=== PATIENT | female | born 1955 | race Caucasian/White ===

== ENCOUNTER → 2017-05-15 10:44 | Outpatient (CLI) | payer MEDICAID ==
--- NOTE | ~2017-05-15 | ST ---
PATIENT:SANDRA LICONA MEDICAL RECORD: [id number] SEX: F LOCATION:[facility] ORDER #: ADMISSION DATE: 05/15/17 AGE OF PATIENT: 62 REFERRING PHYSICIAN: INTERPRETING PHYSICIAN: EARLE CRUMP MD DATE OF SERVICE: 05/15/2017 PROCEDURE: Nuclear stress test. INDICATION: Chest pain of unknown etiology. She was exercised on standard Lexiscan protocol with 32.5 mCi of sestamibi injected at peak stress. Rest images were done previously with 12.7 mCi of sestamibi. FINDINGS: Gated SPECT reveals a preserved ejection fraction greater than 80% with good wall motioning, thickening, and brightening throughout all segments. SPECT imaging; sestamibi is used as myocardial perfusion agent. There is homogeneous uptake throughout all segments at rest and stress with no evidence of inducible ischemia or previous infarction. OVERALL IMPRESSION: 1. This is a normal nuclear stress test with no evidence of inducible ischemia or previous infarction. 2. Gated SPECT reveals preserved ejection fraction greater than 70% in this patient with ongoing symptomatology, the current scan does not suggest the presence of hemodynamically significant coronary artery disease. We would proceed with noncardiac chest pain etiology workup. TRANSINT:[id number] Voice Confirmation ID: [id number] DOCUMENT ID: [id number] EARLE CRUMP MD at 1323 CC: [id number] DICTATION DATE: 05/20/17 0938 MICROCOMPUTER TECHNICIAN: 05/20/17 1304 DEP CLI 05/15/[address] [address]
== END | disposition home or self-care (01) ==
LOC: D.NM 10:44
DX: I20.9 Angina pectoris, unspecified (principal); R06.00 Dyspnea, unspecified

== ENCOUNTER → 2018-03-10 18:22 | Outpatient (CLI) | payer MEDICAID | END | disposition home or self-care (01) | LOC: D.MAMMO 13:30 | DX: Z12.31 Encounter for screening mammogram for malignant neoplasm of breast (principal) ==

== ENCOUNTER 2018-12-23 06:25 | Day surgery (SDC) | payer MEDICAID ==
[2018-12-22 14:27] LABS: BASOPHILS 0 % (0-2); EOSINOPHILS 0.3 % (0-7); HEMATOCRIT 37.2 % (36.0-48.0); HEMOGLOBIN 13.3 g/dL (12-16); LYMPHOCYTES 25.9 % (15-50); MCHC 35.8 g/dL (31.0-37.0); MCV 89.4 fL (80.0-100.0); MEAN PLATELET VOLUME 9.2 fL (7.4-10.4); MONOCYTES 14.1 % (2-11); NEUTROPHILS 59.7 % (40-80); PLATELET COUNT 186 10x3/uL (130-400); RBC 4.16 10x6/uL (4.00-5.40); RDW 12.4 % (11.5-14.5); WBC 3.4 10x3/uL (4.8-10.8)
[2018-12-22 15:50] LABS: INR 1.08 (0.85-1.17); PROTIME 13.5 SECONDS (11.6-15.0)
[2018-12-22 15:51] LABS: APTT 25.7 SECONDS (22.8-39.4)
[~2018-12-23] VITALS: Ht 160 cm; Wt 87.5 kg
[~2018-12-23 06:25] MED LIST: DILANTIN100 MG PO; FLUTICASONE PRO16 GM; PHENOBARBITAL32.4 MG; VITAMIN D250000 UNIT
[2018-12-23] MEDS ORDERED: ASPIRIN81 MG PO (07:07)
[2018-12-23 07:09] VITALS: BP 141/82; Ht 160 cm; Wt 87.5 kg
[2018-12-23] MEDS ORDERED: HYDROCODON-ACE1 EAC7 PO (09:39)
--- NOTE | 2018-12-23 14:33 | NUR ---
1230 PT. CALLED OUT FROM THE BATHROOM, STATES I JUST THREW UP 4 TIMES, RETURNED TO BED, COOL CLOTH TO FACE, EMESIS BASIN GIVEN.
--- NOTE | 2018-12-23 15:02 | NUR ---
3755 PT STATES I HAVE NOT THROWN UP ANYMORE AND FEEL BETTER NOW AND AM READY TO GO HOME NOW, RELEASED IN , [employer].
== END 2018-12-23 14:55 | disposition home or self-care (01) ==
LOC: D.OPS 06:25
PROVIDERS: Anesthesiology; ATTEND Surgery
DX: K80.10 Calculus of gallbladder with chronic cholecystitis without obstruction (principal); G40.909 Epilepsy, unspecified, not intractable, without status epilepticus; Z90.5 Acquired absence of kidney; Z01.812 Encounter for preprocedural laboratory examination

== ENCOUNTER 2019-10-18 19:00 | Outpatient (CLI) | payer MEDICARE, OTHER ==
[2018-12-23 07:09] VITALS: BMI 34.2
[~2019-10-18 19:00] MED LIST changes: +ASPIRIN81 MG PO; +HYDROCODON-ACE1 EAC7 PO
== END 2019-10-18 23:59 | disposition home or self-care (01) ==
LOC: D.MAMMO 19:00
PROVIDERS: ATTEND Family Medicine
DX: Z12.31 Encounter for screening mammogram for malignant neoplasm of breast (principal)